=== PATIENT | female | born 1975 | race African-American/Black ===

== ENCOUNTER 2016-07-07 23:12 | Emergency (ER) | payer MEDICAID ==
[~2016-07-07] VITALS: Ht 172.7 cm; Wt 99.0 kg
[2016-07-07 23:12] VITALS: BP 128/62; PULSE 67; RESP 16; TEMP 98.1; O2SAT 99
[2016-07-08 01:45] LABS: AUTOMATED NEUTROPHIL # 6.1 TH/MM3 (1.8-7.7); BASOPHIL # 0.1 TH/MM3 (0-0.2); EOSINOPHIL # 0.1 TH/MM3 (0-0.4); EOSINOPHIL % 0.7 % (0.0-4.0); HEMATOCRIT 30.6 % (35.0-46.0); HEMO FLAGS DIFF FINAL; LYMPH % 21.8 % (9.0-44.0); LYMPHOCYTE # 1.9 TH/MM3 (1.0-4.8); MEAN CELL VOLUME 78.5 FL (80.0-100.0); MEAN CORPUSCULAR HEMOGLOBIN 25.6 PG (27.0-34.0); MEAN CORPUSCULAR HGB CONC 32.6 % (32.0-36.0); NEUT % 70.5 % (16.0-70.0); PLATELET COUNT 360 TH/MM3 (150-450); RED CELL DISTRIBUTION WIDTH 17.2 % (11.6-17.2); WHITE BLOOD COUNT 8.7 TH/MM3 (4.0-11.0)
[2016-07-08 01:57] VITALS: BP 108/57; PULSE 60; RESP 15; O2SAT 98
--- NOTE | 2016-07-08 02:02 | RADRPT ---
EXAM DATE/TIME: 07/08/2016 01:45 [facility] COMPARISON: No previous studies available for comparison. INDICATIONS : Cephalgia x1 week. Vomiting today. RADIATION DOSE: 39.92 CTDIvol (mGy) MEDICAL HISTORY : None SURGICAL HISTORY : None. ENCOUNTER: Initial ACUITY: 1 week PAIN SCALE: 4/10 LOCATION: cranial TECHNIQUE: Multiple contiguous axial images were obtained of the head. Using automated exposure control and adj ustment of the mA and/or kV according to patient size, radiation dose was kept as low as reasonably a chievable to obtain optimal diagnostic quality images. FINDINGS: CEREBRUM: The ventricles are normal for age. No evidence of midline shift, mass lesion, hemorrhage or acute in farction. No extra-axial fluid collections are seen. POSTERIOR FOSSA: The cerebellum and brainstem are intact. The 4th ventricle is midline. The cerebellopontine angle i s unremarkable. EXTRACRANIAL: The visualized portion of the orbits is intact. SKULL: The calvaria is intact. No evidence of skull fracture. CONCLUSION: Normal examination. Eligio Marion Jr., MD on July 08, 2016 at 2:00 Board Certified Radiologist. This report was verified electronically.
[2016-07-08 02:15] LABS: ALT (GPT) 19 U/L (10-53); ANION GAP 7 MEQ/L (5-15); AST (GOT) 16 U/L (15-37); BICARBONATE 25.9 MEQ/L (21.0-32.0); BLOOD UREA NITROGEN 10 MG/DL (7-18); CHLORIDE 111 MEQ/L (98-107); GLOMERULAR FILTRATION RATE 94 ML/MIN (>89); POTASSIUM 3.6 MEQ/L (3.5-5.1); SODIUM (NA) 144 MEQ/L (136-145)
[2016-07-08] MEDS ORDERED: SODIUM CHLOR 0.9% 1000 ML INJ 1,000 ML IV ONE (02:15)
[2016-07-08] MEDS ORDERED: PROCHLORPERAZINE INJ 10 MG/2 ML VIAL IV PUSH ONE (02:15)
[2016-07-08] MEDS ORDERED: diphenhydrAMINE HCL 50 MG/ML VIAL IV PUSH ONE (02:15)
[2016-07-08] MEDS ORDERED: KETOROLAC TROMETHAMINE 30 MG/ML (IVP) VIAL IV PUSH ONE (02:15)
[2016-07-08 02:17] LABS: ALKALINE PHOSPHATASE 66 U/L (45-117); TOTAL BILIRUBIN ADULT 0.3 MG/DL (0.2-1.0)
--- NOTE | 2016-07-08 02:33 | PD ---
HPI Chief Complaint: Headache Time Seen by Provider: 01:21 Travel History International Travel<30 days: No Contact w/Intl Traveler<30days: No Traveled to known affect area: No History of Present Illness HPI The patient is a 40 year old female who presents to the [facility] emergency department with a history of headache that she reports began over a week ago. The patient reports that the headache is in her neck and radiates up into the top of her head. She reports that she's had headaches like this previously, however this has lasted longer than usual. She reports that today she began to have nausea and vomiting associated with it. She reports that she' s had sensitivity to light and sound. She reports that she has been diagnosed with migraine headaches in the past. Her primary care physician started her on a medicine 6 months ago to help, however she reports that it did not. She reports that she cannot recall the name of the medicine. She's had 3 episodes of vomiting today. She had 1 episode of diarrhea. She denies having any nasal discharge or sinus pressure. She reports that she does have a mild cough. She denies having any fevers or chills. Her primary care physician is in [place], [place]. She reports that she has been under increased stress recently. The patient denies any neck stiffness, shortness of breath, abdominal pain, urinary symptoms, or neurologic symptoms. LMP: June 26, 2016 [facility] Past Medical History Narrative Medical The patient's past medical history is significant for headaches, tobacco use. Headaches: Yes Tetanus Vaccination: < 5 Years Influenza Vaccination: No ?: Not : 9 Para: 7 Miscarriage: 2 Tubal Ligation: Yes Past Surgical History Narrative Surgical The patient's past surgical history is significant for LEEP procedure related to cervical dysplasia. Social History Alcohol Use: No Tobacco Use: Yes (one half pack per day) Substance Use: No Allergies-Medications (Allergen,Severity, Reaction): Coded Allergies: No Known Allergies (Unverified , 07/08/16) Reported Meds & Prescriptions Reported Meds & Active Scripts Active No Active Prescriptions or Reported Medications Review of Systems Except as stated in HPI: all other systems reviewed are Neg General / Constitutional: No: Fever Eyes: No: Visual changes HENT: Positive: Headaches, Neck Pain, No: Rhinorrhea, Congestion, Neck Stiffness Cardiovascular: No: Chest Pain or Discomfort, Dyspnea on exertion Respiratory: Positive: Cough, No: Shortness of Breath Gastrointestinal: Positive: Nausea, Vomiting, Diarrhea, Changes in Bowel Habits , No: Abdominal Pain, Hematemesis, Hematochezia, Constipation, Indigestion, Loss of Appetite Genitourinary: No: Dysuria Musculoskeletal: No: Pain Skin: No Rash Neurologic: No: Weakness, Focal Abnormalities, Change in Mentation, Slurred Speech, Sensory Disturbance Psychiatric: No: Depression Endocrine: No: Polydipsia Hematologic/Lymphatic: No: Easy Bruising Physical Exam Narrative General: The patient is a well-developed well-nourished female in no acute distress. Head and Neck exam: Head is normocephalic atraumatic. Eyes: EOMI, pupils are equal round and reactive to light. Nose: Midline septum with pink mucous membranes and no sinus tenderness on palpation. Mouth: Dentition unremarkable. Moist mucus membranes. Posterior oropharynx is not erythematous. No tonsillar hypertrophy. Uvula midline. Airway patent. Neck: No palpable lymphadenopathy. No nuchal rigidity. No thyromegaly. No spinous process tenderness to palpation, no step-off or crepitus, no erythema or ecchymosis. Cardiovascular: Regular rate and rhythm without murmurs, gallops, or rubs. Lungs: Clear to auscultation bilaterally. No wheezes, rhonchi, or rales. Abdomen: Soft, without tenderness to palpation in all 4 quadrants of the abdomen. No guarding, rebound, or rigidity. Normal bowel sounds are audible. Extremities: No clubbing, cyanosis, or edema. Back: No spinous process tenderness to palpation. No costovertebral angle tenderness to palpation. No calf tenderness on palpation. Neurologic Exam: Cranial nerves 2-12 were intact on exam. Strength is 5/5 in all 4 extremities. No sensory deficits noted. Skin Exam: No rash noted. Intact skin that is warm and dry. Data Data Last Documented VS Vital Signs Date Time Temp Pulse Resp B/P Pulse Ox O2 Delivery O2 Flow Rate FiO2 07/08/16 01:57 60 15 108/57 98 Room Air 07/07/16 23:12 98.1 Orders Complete Blood Count With Diff (07/08/16 01:21) Comprehensive Metabolic Panel (07/08/16 01:21) Lipase (07/08/16 01:21) Urinalysis - C+S If Indicated (07/08/16 01:21) Chest, Single Ap (07/08/16 01:21) Ct Brain W/O Iv Contrast(Rout) (07/08/16 01:21) Iv Access Insert/Monitor (07/08/16 01:21) Ecg Monitoring (07/08/16 01:21) Oximetry (07/08/16 01:21) Ed Urine Pregnancytest Poc (07/08/16 01:21) Sodium Chlor 0.9% 1000 Ml Inj (Ns 1000 M (07/08/16 02:15) Ketorolac Inj (Toradol Inj) (07/08/16 02:15) Prochlorperazine Inj (Compazine Inj) (07/08/16 02:15) Diphenhydramine Inj (Benadryl Inj) (07/08/16 02:15) Labs Laboratory Tests Test 07/08/16 07/08/16 01:38 02:00 White Blood Count 8.7 TH/MM3 Red Blood Count 3.90 MIL/MM3 Hemoglobin 10.0 GM/DL Hematocrit 30.6 % Mean Corpuscular Volume 78.5 FL Mean Corpuscular Hemoglobin 25.6 PG Mean Corpuscular Hemoglobin 32.6 % Concent Red Cell Distribution Width 17.2 % Platelet Count 360 TH/MM3 Mean Platelet Volume 7.8 FL Neutrophils (%) (Auto) 70.5 % Lymphocytes (%) (Auto) 21.8 % Monocytes (%) (Auto) 6.0 % Eosinophils (%) (Auto) 0.7 % Basophils (%) (Auto) 1.0 % Neutrophils # (Auto) 6.1 TH/MM3 Lymphocytes # (Auto) 1.9 TH/MM3 Monocytes # (Auto) 0.5 TH/MM3 Eosinophils # (Auto) 0.1 TH/MM3 Basophils # (Auto) 0.1 TH/MM3 CBC Comment DIFF FINAL Differential Comment Sodium Level 144 MEQ/L Potassium Level 3.6 MEQ/L Chloride Level 111 MEQ/L Carbon Dioxide Level 25.9 MEQ/L Anion Gap 7 MEQ/L Blood Urea Nitrogen 10 MG/DL Creatinine 0.70 MG/DL Estimat Glomerular Filtration 94 ML/MIN Rate Random Glucose 92 MG/DL Calcium Level 9.1 MG/DL Total Bilirubin 0.3 MG/DL Aspartate Amino Transf 16 U/L (AST/SGOT) Alanine Aminotransferase 19 U/L (ALT/SGPT) Alkaline Phosphatase 66 U/L Total Protein 7.1 GM/DL Albumin 3.3 GM/DL Lipase 94 U/L Urine Color YELLOW Urine Turbidity HAZY Urine pH 7.5 Urine Specific [place] 1.017 Urine Protein TRACE mg/dL Urine Glucose (UA) NEG mg/dL Urine Ketones NEG mg/dL Urine Occult Blood NEG Urine Nitrite NEG Urine Bilirubin NEG Urine Urobilinogen LESS THAN 2.0 MG/DL Urine Leukocyte Esterase SMALL Urine RBC 2 /hpf Urine WBC 5 /hpf Urine Squamous Epithelial 4 /hpf Cells Urine Renal Epithelial Cells <1 /hpf Urine Amorphous Sediment RARE Urine Bacteria OCC /hpf Urine Mucus FEW /lpf Microscopic Urinalysis Comment CULT NOT INDICATED MDM Medical Decision Making Medical Screen Exam Complete: Yes Emergency Medical Condition: Yes Interpretation(s) Last Impressions Head CT 07/08/16120 Signed Impressions: Service Date/Time: Friday, July 08, 2016 01:45 - CONCLUSION: Normal examination. Eligio Marion Jr., MD Chest X-Ray 07/08/16120 Signed Impressions: Service Date/Time: Friday, July 08, 2016 01:29 - CONCLUSION: No acute disease. Eligio Marion Jr., MD Differential Diagnosis Migraine headache, versus tension headache, versus intracranial abnormality, versus viral syndrome versus sinus headache, versus cluster headache Narrative Course During the course of the patients emergency department visit, the patients history, examination, and differential diagnosis were reviewed with the patient. The patient had IV access obtained and blood work sent for analysis. The patient was placed on a monitoring specialist with oximetry and blood pressure monitoring. A CT scan of the brain was ordered. The patient was provided normal saline 1 L IV fluid bolus, Toradol 15 mg IV, Compazine 5 mg IV, Benadryl 25 mg IV. The patients laboratory studies were reviewed and remarkable for a white count of 8.7, hemoglobin 10, platelets 360 with 70.5 neutrophils Radiology studies were reviewed and remarkable for a CT scan of the brain that shows no acute abnormality. The patient reportedly was feeling improved and her significant other had to go to work, unfortunately the patient's workup was not completed. The patient decided to leave AGAINST MEDICAL ADVICE prior to the completion of her workup AMA: The risks of leaving against medical advice without further evaluation treatment were discussed with the patient. These risks include possible stroke or . The patient indicated understanding of these risks and appeared to have the capacity to make this decision. Diagnosis Primary Impression: Headache Qualified Code: G44.209 - Acute non intractable tension-type headache Scripts No Active Prescriptions or Reported Meds Disposition: 07 AGAINST MEDICAL ADVICE Condition: Bobbi Peraza MD Jul 08, 2016 02:33
--- NOTE | 2016-07-08 02:34 | RADRPT ---
EXAM DATE/TIME: 07/08/2016 01:29 [facility] COMPARISON: No previous studies available for comparison. INDICATIONS : Nausea and vomiting, headache. MEDICAL HISTORY : None. SURGICAL HISTORY : None. ENCOUNTER: Initial ACUITY: 1 day PAIN SCORE: 0/10 LOCATION: Bilateral chest FINDINGS: A single view of the chest demonstrates the lungs to be symmetrically aerated without evidence of mas s, infiltrate or effusion. The cardiomediastinal contours are unremarkable. Osseous structures are intact. CONCLUSION: No acute disease. Eligio Marion Jr., MD on July 08, 2016 at 2:33 Board Certified Radiologist. This report was verified electronically.
[2016-07-08 03:15] LABS: BACTERIA, URINE OCC /hpf; BLOOD, URINE NEG (NEG); COMMENT (UR) CULT NOT INDICATED; CULTURE IF INDICATED CULT NOT INDICATED; GLUCOSE,URINE NEG (NEG); KETONE, URINE NEG (NEG); MUCUS URINE FEW /lpf (OCC); NITRITE,URINE NEG (NEG); PH, URINE 7.5 (5.0-8.5); RENAL EPITHELIAL CELLS <1 /hpf; SQUAMOUS EPITHELIAL CELL URINE 4 /hpf (0-5); URINE COLOR YELLOW (YELLW/STRAW)
== END 2016-07-08 04:34 | disposition left against medical advice (07) ==
LOC: NEPC 23:12
DX: Z72.0 Tobacco use (principal); R51 Headache; R11.2 Nausea with vomiting, unspecified; R19.7 Diarrhea, unspecified
CPT/HCPCS: 70450; 71010; 80053; 81001; 83690; 84703; 85025; 96374; 96375; 99284; J0780; J1200; J1885; J7030

== ENCOUNTER 2016-09-18 21:42 | Emergency (ER) | payer MEDICAID, OTHER ==
[2016-09-18 21:44] VITALS: BP 135/78; PULSE 86; RESP 20; TEMP 98.6; O2SAT 100
[2016-09-18] MEDS ORDERED: ONDANSETRON ODT 4 MG TAB PO ONE (22:45)
[2016-09-18] MEDS ORDERED: KETOROLAC TROMETHAMINE 60 MG/2 ML (IM) VIAL IM ONE (22:45)
--- NOTE | 2016-09-18 22:55 | PD ---
HPI Chief Complaint: Back/ Neck Pain or Injury Time Seen by Provider: 22:36 Travel History International Travel<30 days: No Contact w/Intl Traveler<30days: No Traveled to known affect area: No History of Present Illness HPI PT C/O LEFT FLANK PAIN, RAD TO LEFT GROIN AREA AND DOWN LEFT LEG WELL PFSH Past Medical History Headaches: Yes Immunizations Current: Yes Tetanus Vaccination: > 5 Years Influenza Vaccination: No ?: Unknown LMP: LAST MONTH : 9 Para: 7 Miscarriage: 2 : 0 Tubal Ligation: Yes Past Surgical History Genitourinary Surgery: Yes (LEEP 2004) Social History Alcohol Use: No Tobacco Use: Yes (one half pack per day) Substance Use: No Allergies-Medications (Allergen,Severity, Reaction): Coded Allergies: No Known Allergies (Unverified , 09/18/16) Reported Meds & Prescriptions Reported Meds & Active Scripts Active No Active Prescriptions or Reported Medications Review of Systems Except as stated in HPI: all other systems reviewed are Neg Genitourinary: Positive: Flank Pain Physical Exam Narrative GENERAL: SKIN: Warm and dry. HEAD: Atraumatic. Normocephalic. EYES: Pupils equal and round. No scleral icterus. No injection or drainage. ENT: No nasal bleeding or discharge. Mucous membranes pink and moist. NECK: Trachea midline. No JVD. CARDIOVASCULAR: Regular rate and rhythm. RESPIRATORY: No accessory muscle use. Clear to auscultation. Breath sounds equal bilaterally. GASTROINTESTINAL: Abdomen soft, non-tender, nondistended. Hepatic and splenic margins not palpable. MUSCULOSKELETAL: Extremities without clubbing, cyanosis, or edema. No obvious deformities. PATIENT DID HAVE POSITIVE SLR ON EXAM. NO MIDLINE TTP ON LUMBAR/ SACRAL REGION NEUROLOGICAL: Awake and alert. No obvious cranial nerve deficits. Motor grossly within normal limits. Five out of 5 muscle strength in the arms and legs. Normal speech. PSYCHIATRIC: Appropriate mood and affect; insight and judgment normal. Data Data Last Documented VS Vital Signs Date Time Temp Pulse Resp B/P Pulse Ox O2 Delivery O2 Flow Rate FiO2 09/18/16 21:44 98.6 86 20 135/78 100 Room Air Orders Urinalysis - C+S If Indicated (09/18/16 22:39) Ct Abd/Pel W/O Iv Contrast (09/18/16 22:39) Ed Urine Pregnancytest Poc (09/18/16 22:39) Ketorolac Inj (Toradol Inj) (09/18/16 22:45) Ondansetron Odt (Zofran Odt) (09/18/16 22:45) Urine Culture (09/18/16 22:45) Labs Laboratory Tests Test 09/18/16 22:45 Urine Color YELLOW Urine Turbidity HAZY Urine pH 8.0 Urine Specific [place] 1.022 Urine Protein 30 mg/dL Urine Glucose (UA) NEG mg/dL Urine Ketones NEG mg/dL Urine Occult Blood NEG Urine Nitrite POS Urine Bilirubin NEG Urine Urobilinogen LESS THAN 2.0 MG/DL Urine Leukocyte Esterase NEG Urine RBC LESS THAN 1 /hpf Urine WBC 6 /hpf Urine Squamous Epithelial 5 /hpf Cells Urine Bacteria MOD /hpf Urine Mucus FEW /lpf Microscopic Urinalysis Comment CULTURE INDICATED MDM Medical Decision Making Medical Screen Exam Complete: Yes Emergency Medical Condition: Yes Medical Record Reviewed: Yes Differential Diagnosis UTI, PYELO, SCIATICA, KIDNEY STONES Narrative Course UA SHOWED SIGNS OF UTI, WHILE CT WAS NEG FOR DIVERTIC/PYELO/KIDNEY STONES OR AAA /AORTIC DISSECTION...IT DID SHOW OVARIAN CYST WILL D/C HOME ON ABX AND PAIN MED Diagnosis Primary Impression: Urinary tract infection Qualified Code: N30.00 - Acute cystitis without hematuria Additional Impression: OVARIAN CYST-LEFT Patient Instructions: General Instructions, Ovarian Cyst (ED), Urinary Tract Infection in Women (ED) Scripts Tramadol (Ultram)50 Mg Tab50 Mg PO Q6H PRN (PAIN) #21 TAB Ref 0 Prov:Mariano Solano MD 09/19/16 Ciprofloxacin (Cipro)500 Mg Dpe720 Mg PO BID #14 TAB Ref 0 Prov:Mariano Solano MD 09/19/16 Disposition: 01 DISCHARGE HOME Condition: Stable Mariano Solano MD Sep 18, 2016 22:55
[2016-09-18 23:03] LABS: BACTERIA, URINE MOD /hpf; BLOOD, URINE NEG (NEG); COMMENT (UR) CULTURE INDICATED; CULTURE IF INDICATED CULTURE INDICATED; GLUCOSE,URINE NEG (NEG); KETONE, URINE NEG (NEG); MUCUS URINE FEW /lpf (OCC); NITRITE,URINE POS (NEG); SQUAMOUS EPITHELIAL CELL URINE 5 /hpf (0-5); URINE COLOR YELLOW (YELLW/STRAW)
--- NOTE | 2016-09-18 23:47 | RADRPT ---
EXAM DATE/TIME: 09/18/2016 23:27 [facility] COMPARISON: No previous studies available for comparison. INDICATIONS : Left flank pain. ORAL CONTRAST: No oral contrast ingested. RADIATION DOSE: 16.78 CTDIvol (mGy) MEDICAL HISTORY : None SURGICAL HISTORY : Tubal ligation. ENCOUNTER: Initial ACUITY: 1 day PAIN SCALE: 10/10 LOCATION: Left flank TECHNIQUE: Volumetric scanning of the abdomen and pelvis was performed. Using automated exposure control and ad justment of the mA and/or kV according to patient size, radiation dose was kept as low as reasonably achievable to obtain optimal diagnostic quality images. FINDINGS: CT Abdomen: The liver, spleen, pancreas, kidneys, adrenals are unremarkable. There is no evidence for any appreciable pathological adenopathy, free fluid, or bowel obstruction. There is no evidence for any stones in the kidneys or the course of the ureters on either side. There is no hydronephrosis. CT pelvis: There is no evidence for mass, abscess formation, or any significant adenopathy within the pelvis. There are gas bubbles in the patient's left buttock most likely injection site. There is mod erate amount of stool throughout the colon. There is a small cyst in the left ovary measuring 1.8 cm in size. CONCLUSION: Small left ovarian cyst and moderate stool. Neema Ibarra MD on September 18, 2016 at 23:42 Board Certified Radiologist. This report was verified electronically.
[2016-09-19] MEDS ORDERED: CIPR-9 PO (00:04)
[2016-09-19] MEDS ORDERED: ULTR50TA5 PO (00:04)
== END 2016-09-19 01:17 | disposition home or self-care (01) ==
LOC: NEPD 21:42
DX: N83.202 Unspecified ovarian cyst, left side (principal); F17.200 Nicotine dependence, unspecified, uncomplicated; B96.20 Unspecified Escherichia coli [E. coli] as the cause of diseases classified elsewhere
CPT/HCPCS: 74176; 81001; 84703; 87086; 96372; 99285; J1885

== ENCOUNTER 2017-12-27 18:11 | Observation (INO) ==
[2017-12-27] MEDS ORDERED: Acetaminophen 500 MG Tablet PO ONE (19:09)
[2017-12-27] MEDS ORDERED: Vancomycin Inj 1 GM/200 ML PIGGYBACK IV.SIG ONE (19:09)
[2017-12-27] MEDS ORDERED: Ibuprofen 600 MG Tablet PO ONE (19:09)
[2017-12-27] MEDS ORDERED: Morphine Inj 4 MG/ML Vial IV.PUSH ONE (19:16)
--- NOTE | 2017-12-27 19:19 | ED ---
HPI General Chief Complaint: Headache Stated Complaint: migrain/chills/cant eat Time Seen by Provider: 12/27/17 19:03 History of Present Illness HPI Narrative: The patient was seen and examined in the presence of the nurse. This patient complains of headache. She has a bilateral frontal throbbing. Duration 10 days. Severity is moderate. No thunderclap onset. She says she gets migraines rarely does feel similar. She also has fever of 102.2. She has some nasal and facial congestion. She denies productive cough she has nausea but no vomiting or diarrhea or urinary complaints. No neck pain or stiffness. No alleviating factors. No exacerbating factors. Related Data Home Medications Medication Instructions Recorded Confirmed No Known Home Medications 12/27/17 12/27/17 Allergies Allergy/AdvReac Type Severity Reaction Status Date / Time No Known Allergies Allergy UNKNOWN Uncoded 12/27/17 18:47 [facility] Medical History Medical History Patient denies medical problems (Acute) Surgical History Surgical History No history of previous surgery (Acute) Social History Social History Substance History: No History of Abuse Smoking Status: Former smoker How Often Do You Have a Drink Containing Alcohol: Never Recent Travel in [facility] within the Last 8 Weeks: No Recent Out of Country Travel within the Last 8 Weeks: No Immunization History Tetanus Immunization: <5 Years Exam Narrative Exam Narrative: GENERAL: Well-nourished, well-developed patient in no apparent distress. SKIN: Focused skin assessment reveals no rash and nodules. Skin is Warm and dry. HEAD: Atraumatic. Normocephalic. EYES: Pupils equal and round. No scleral icterus. No injection or drainage. ENT: No nasal bleeding or discharge. Mucous membranes pink and moist. NECK: Trachea midline. No JVD. Supple with full range of motion. No stiffness. No meningeal signs. Kernig's and Brudzinski's negative CARDIOVASCULAR: Regular rate and rhythm. No murmur appreciated. RESPIRATORY: No accessory muscle use. Clear to auscultation. Breath sounds equal bilaterally. GASTROINTESTINAL: Abdomen soft, non-tender, nondistended. Hepatic and splenic margins not palpable. MUSCULOSKELETAL: No obvious deformities. No clubbing. No cyanosis. No edema. NEUROLOGICAL: Awake and alert. No obvious cranial nerve deficits. Motor grossly within normal limits. Normal speech. PSYCHIATRIC: Appropriate mood and affect; insight and judgment normal. Course Initial Documented Vital Signs Temperature 102.2 F H 12/27/17 18:35 Pulse Rate 81 12/27/17 18:35 Respiratory Rate 16 12/27/17 18:35 Blood Pressure 124/67 12/27/17 18:35 Pulse Oximetry 99 12/27/17 18:35 Last Documented Vital Signs Temperature 99.9 F H 12/27/17 20:37 Pulse Rate 81 12/27/17 18:35 Respiratory Rate 16 12/27/17 18:35 Blood Pressure 124/67 12/27/17 18:35 Pulse Oximetry 99 12/27/17 18:35 Medical Decision Making MDM Narrative Medical decision making narrative: IV placed and labs sent. I order blood cultures followed by antibiotics of vancomycin and Rocephin. Gave her Tylenol and Motrin and Zofran. Patient has hypokalemia which I replaced orally. Has no leukocytosis. Chest x- ray and brain CT normal and urine clean. Loose swab negative. I have concern for meningitis with her fever and headache. I attempted lumbar puncture with multiple times but I cannot get any fluid. See procedure note. There was tolerated well but just no fluid could be obtained. I reviewed medical residents will admit for evaluation of meningitis. Medical Screen Exam Complete: Yes Emergency Medical Condition: Yes Differential Diagnosis Differential Diagnosis: Flu syndrome, meningitis, pneumonia Medical Records Medical records reviewed: Yes I reviewed the patient's medical records. Lab Data Lab results reviewed: Yes I reviewed the patient's lab results. Result diagrams: 12/27/17 19:45 12/27/17 19:45 Lab Results 12/27/17 12/27/17 12/27/17 Range/Units 19:45 19:45 19:45 WBC 4.5 (4.0-11.0) th/mm3 RBC 3.87 L (4.00-5.30) mil/mm3 Hgb 9.9 L (11.6-15.3) gm/dL Hct 31.1 L (35.0-46.0) % MCV 80.3 (80.0-100.0) fL MCH 25.6 L (27.0-34.0) pg MCHC 31.9 L (32.0-36.0) % RDW 16.3 (11.6-17.2) % Plt Count 316 (150-450) th/mm3 MPV 8.0 (7.0-11.0) fL Neut % (Auto) 49.6 (16.0-70.0) % Lymph % (Auto) 38.7 (9.0-44.0) % [place] % (Auto) 11.2 H (0.0-8.0) % Eos % (Auto) 0.1 (0.0-4.0) % Baso % (Auto) 0.4 (0.0-2.0) % Neut # (Auto) 2.2 (1.8-7.7) th/mm3 Lymph # (Auto) 1.7 (1.0-4.8) th/mm3 [place] # (Auto) 0.5 (0.0-0.9) th/mm3 Eos # (Auto) 0.0 (0.0-0.4) th/mm3 Baso # (Auto) 0.0 (0.0-0.2) th/mm3 WBC Differential . Differential Comment Auto diff final PT 10.9 (9.8-11.6) sec INR 1.1 Ratio APTT 24.9 (24.3-30.1) sec Sodium 139 (136-145) meq/L Potassium 2.8 L* (3.5-5.1) meq/L Chloride 106 (98-107) meq/L Carbon Dioxide 26.3 (21.0-32.0) meq/L Anion Gap 7 (5-15) meq/L BUN 8 (7-18) mg/dL Creatinine 0.86 (0.50-1.00) mg/dL Estimated GFR 88 L (>89) mL/min Random Glucose 84 (74-106) mg/dL Calcium 8.4 L (8.5-10.1) mg/dL Urine Color (Yellw/Straw) Urine Clarity (Clear) Urine pH (5.0-8.5) Ur Specific [place] (1.002-1.035) Urine Protein (Neg-Trace) mg/dL Urine Glucose (UA) (Negative) mg/dL Urine Ketones (Negative) mg/dL Urine Occult Blood (Negative) Urine Nitrate (Negative) Urine Bilirubin (Negative) Urine Urobilinogen (Less than 2) mg/dL Ur Leukocyte Esterase (Negative) Urine RBC (0-3) /hpf Urine WBC (0-5) /hpf Ur Squamous Epith Cells (0-5) /hpf Urine Mucus (Occasional) /lpf Micro UA Comment Ur Microscopic Review Urine Culture Comments 12/27/17 Range/Units 19:45 WBC (4.0-11.0) th/mm3 RBC (4.00-5.30) mil/mm3 Hgb (11.6-15.3) gm/dL Hct (35.0-46.0) % MCV (80.0-100.0) fL MCH (27.0-34.0) pg MCHC (32.0-36.0) % RDW (11.6-17.2) % Plt Count (150-450) th/mm3 MPV (7.0-11.0) fL Neut % (Auto) (16.0-70.0) % Lymph % (Auto) (9.0-44.0) % [place] % (Auto) (0.0-8.0) % Eos % (Auto) (0.0-4.0) % Baso % (Auto) (0.0-2.0) % Neut # (Auto) (1.8-7.7) th/mm3 Lymph # (Auto) (1.0-4.8) th/mm3 [place] # (Auto) (0.0-0.9) th/mm3 Eos # (Auto) (0.0-0.4) th/mm3 Baso # (Auto) (0.0-0.2) th/mm3 WBC Differential Differential Comment PT (9.8-11.6) sec INR Ratio APTT (24.3-30.1) sec Sodium (136-145) meq/L Potassium (3.5-5.1) meq/L Chloride (98-107) meq/L Carbon Dioxide (21.0-32.0) meq/L Anion Gap (5-15) meq/L BUN (7-18) mg/dL Creatinine (0.50-1.00) mg/dL Estimated GFR (>89) mL/min Random Glucose (74-106) mg/dL Calcium (8.5-10.1) mg/dL Urine Color Yellow (Yellw/Straw) Urine Clarity Hazy H (Clear) Urine pH 6.0 (5.0-8.5) Ur Specific [place] 1.015 (1.002-1.035) Urine Protein Negative (Neg-Trace) mg/dL Urine Glucose (UA) Negative (Negative) mg/dL Urine Ketones Negative (Negative) mg/dL Urine Occult Blood Small H (Negative) Urine Nitrate Negative (Negative) Urine Bilirubin Negative (Negative) Urine Urobilinogen Less than 2 (Less than 2) mg/dL Ur Leukocyte Esterase Negative (Negative) Urine RBC 4 H (0-3) /hpf Urine WBC Less than 1 (0-5) /hpf Ur Squamous Epith Cells 1 (0-5) /hpf Urine Mucus Few H (Occasional) /lpf Micro UA Comment Culture not ind Ur Microscopic Review Not Reportable Urine Culture Comments Culture not ind Imaging Data Attestation: I personally reviewed and interpreted this imaging study as follows : Radiologist's impression: Chest X-Ray 12/27/17 19:09 CONCLUSION: No acute cardiopulmonary disease. Head CT 12/27/17 19:13 CONCLUSION: Unremarkable study. Discharge Plan Discharge Disposition Patient Disposition: 30 Still Patient Discharge Details Diagnosis: Fever, Headache Physicians Team ED Provider: Diaz Alfaro Primary Care Provider: Primary Care RobiEdel Rxs /Orders / Referrals /Forms Prescriptions: No Action No Known Home Medications RF: 0 Discharge Interventions Interventions: Vital Signs Last Done: 12/27/17 20:37 Status ED Status: With Doctor
[2017-12-27] MEDS ORDERED: Vancomycin Inj 1,000 MG in Sodium Chlor 0.9% Inj 250 ML IV.SIG ONE (19:30)
--- NOTE | 2017-12-27 19:40 | XR ---
EXAM DATE: 12/27/2017 7:36 PM EDT AGE/SEX: 42 years / Female INDICATIONS: . Short of breath. Fever. CLINICAL DATA: This is the patient's initial encounter. Patient reports that signs and symptoms have been present for 3 days and indicates a pain score of 5/10. MEDICAL/SURGICAL HISTORY: None. None. COMPARISON: [facility] – [place], CHEST SINGLE AP, 07/08/2016. . FINDINGS: The lungs are clear without infiltrate, nodule, or mass. There is no appreciable pleural effusion for technique. Heart and mediastinum are unremarkable. CONCLUSION: No acute cardiopulmonary disease. Electronically signed by: Aj Ibarra MD 12/27/2017 7:39 PM EDT
[2017-12-27 20:07] LABS: Baso % (Auto) 0.4 % (0.0-2.0); Eos % (Auto) 0.1 % (0.0-4.0); Hematocrit 31.1 % (35.0-46.0); Hemoglobin 9.9 gm/dL (11.6-15.3); Lymph # (Auto) 1.7 th/mm3 (1.0-4.8); Lymph % (Auto) 38.7 % (9.0-44.0); Mean Corpuscular HGB Conc 31.9 % (32.0-36.0); Mean Corpuscular Hemoglobin 25.6 pg (27.0-34.0); Mean Corpuscular Volume 80.3 fL (80.0-100.0); Mono # (Auto) 0.5 th/mm3 (0.0-0.9); Mono % (Auto) 11.2 % (0.0-8.0); Neut # (Auto) 2.2 th/mm3 (1.8-7.7); Neut % (Auto) 49.6 % (16.0-70.0); Platelet Count 316 th/mm3 (150-450); Red Blood Count 3.87 mil/mm3 (4.00-5.30); Red Cell Distribution Width 16.3 % (11.6-17.2); White Blood Count 4.5 th/mm3 (4.0-11.0)
[2017-12-27 20:12] LABS: Bilirubin,Urine Negative (Negative); Clarity,Urine Hazy (Clear); Color,Urine Yellow (Yellw/Straw); Glucose,Urine (UA) Negative (Negative); Leukocyte Esterase,Urine Negative (Negative); Mucus,Urine Few /lpf (Occasional); Nitrite,Urine Negative (Negative); Specific Gravity,Urine 1.015 (1.002-1.035); Squamous Epithelial Cell,Urine 1 /hpf (0-5)
[2017-12-27 20:29] LABS: Activated Partial Thrombo Time 24.9 sec (24.3-30.1); INR 1.1 Ratio; Prothrombin Time 10.9 sec (9.8-11.6)
--- NOTE | 2017-12-27 20:32 | CT ---
EXAM DATE: 12/27/2017 8:21 PM EDT AGE/SEX: 42 years / Female INDICATIONS: Headache. CLINICAL DATA: This is the patient's initial encounter. Patient reports that signs and symptoms have been present for 1 week and indicates a pain score of 7/10. MEDICAL/SURGICAL HISTORY: None. None. RADIATION DOSE: 33.62 CTDI (mGy) COMPARISON: . TECHNIQUE: CT of the head without contrast. Using automated exposure control and adjustment of the mA and/or kV according to patient size, radiation dose was kept as low as reasonably achievable to ob tain optimal diagnostic quality images. DICOM format image data is available electronically for revi ew and comparison. FINDINGS: There is no evidence for intracranial hemorrhage, mass effect, mass lesions, edema, or extra-axial fl uid collections. The visualized bony structures appear intact. The ventricles are normal size for t he patient's age. There are no signs of acute infarction for technique. CONCLUSION: Unremarkable study. Electronically signed by: Aj Ibarra MD 12/27/2017 8:29 PM EDT
[2017-12-27 20:37] LABS: Calcium 8.4 mg/dL (8.5-10.1); Carbon Dioxide 26.3 meq/L (21.0-32.0)
[2017-12-27 21:26] LABS: Potassium 2.8 meq/L (3.5-5.1)
[2017-12-27] MEDS ORDERED: Potassium Chloride 25 MEQ Effervescent Tablet PO ONE (22:14)
--- NOTE | 2017-12-27 22:34 | P.HPFP ---
History of Present Illness Primary Care Physician: No Primary Care Physician <DangeloGregorio Nilesh 12/28/17 15:12> No Primary Care Physician <Keri RUBYBjorn Macario 12/27/17 22:33> Chief Complaint: RAMIREZ and fever <Keri RUBYBjorn Macario 12/27/17 22:33> History of Present Illness: Ms Zepeda is a healthy 42 YO with PMHx of migraines, varicose veins and restless leg syndrome who has had a RAMIREZ for a week and a half and fever today. She has had intermittent migraines in the past but those resolved. RAMIREZ today described as throbbing at the temples and starts on one side and switches from side to side and goes to her neck. There has been dizziness, sensation like the room is spinning with pressure; there has been nausea but no vomiting, no diarrhea or abdominal pain, no dysuria; however, there is tingling and radiation in the right arm; there is whole body pain associated with the RAMIREZ. There is no Hx of trauma; no sick contacts. Pt notes she visited the ED several months ago for back pain and a cyst on her left ovary was causing pain. SurgHx: tubal ligation and LEEP FamHx: No Hx in mom or dad; father was killed; brother with HTN; mother is still alive SocHx: smoked for a couple years. Started when she was 38; no EtOH or other drugs Takes no meds currently NKA Pt had a PCP in [place] 2-3 years ago but does not have one now. <Keri RUBYBjorn Macario 12/27/17 23:58> - Diagnosis (1) Fever (2) Headache (3) Hypokalemia <Keri RUBYBjorn Macario 12/28/17 00:34> (1) Headache (2) Fever (3) Hypokalemia <Gregorio Pierson Nilesh 12/28/17 15:12> Review of Systems Constitutional: Reports fever(s), Reports weakness, Denies night sweats < Bjorn Saavedra III Renaldo 12/27/17 23:58> Eyes: Reports sensitivity to light (left eye), Denies blurry vision, Denies change in vision <Bjorn Saavedra III Renaldo 12/27/17 23:58> Ears, Nose, Mouth, and Throat: Reports dizziness, Denies nasal congestion, Denies nasal discharge, Denies sinus pressure <[facility] 12/27/17 23:58> Cardiovascular: Reports chest pain (mild chest tightness), Reports leg swelling (RLE), Reports lightheadedness, Reports radiating jaw, neck or arm pain ( tingling in right arm with radiation) <[facility] 12/27/17 23:58> Respiratory: Reports cough, Denies shortness of breath <[facility] 12/27/17 23:58> Gastrointestinal: Denies abdominal pain, Denies loose stools, Denies nausea, Denies vomiting <[facility] 12/27/17 23:58> Genitourinary: Denies painful urination, Denies pelvic pain <[facility] 12/27/17 23:58> Musculoskeletal: Reports body aches (whole body pain), Reports neck pain, Reports tingling (in right arm) <[facility] 12/27/17 23:58> Skin/Breast: Denies lesions, Denies rash <[facility] 12/27/17 23:58> Neurologic: Reports dizziness, Reports headache(s), Reports radiating pain, Reports tingling, Reports tingling/numbness/burning sensations, Denies fainting <[facility] 12/27/17 23:58> PMFSH - History History Provided By: Patient <Keri RUBYBjorn [facility] 12/27/17 22:33> - Medical History Medical History: Medical History (Last Updated 12/27/17 @ 23:51 by Bjorn Saavedra III, MD, R2) Hx LEEP (loop electrosurgical excision procedure), cervix, Patient denies medical problems <Gregorio Pierson - 12/28/17 14:55> Medical History (Last Updated 12/27/17 @ 23:51 by Bjorn Saavedra III, MD, R2) Hx LEEP (loop electrosurgical excision procedure), cervix, Patient denies medical problems <Keri RUBYBjorn [facility] 12/27/17 23:58> - Surgical History Surgical History: Surgical History (Last Updated 12/27/17 @ 23:51 by Bjorn Saavedra III, MD, R2) Hx of tubal ligation No history of previous surgery <Gregorio Pierson - 12/28/17 14:55> Surgical History (Last Updated 12/27/17 @ 23:51 by Bjorn Saavedra III, MD, R2) Hx of tubal ligation No history of previous surgery <Keri RUBYBjorn Macario 12/27/17 23:58> - Social History I have reviewed the patient's Social History: Yes <Keri RUBYBjorn Macario 23:58> - Tobacco History Second Hand Smoke Exposure: Yes <Keri RUBYBjorn Macario 12/27/17 23:58> Tobacco Use In Past 30 Days: No <Keri RUBYBjorn Macario 12/27/17 23:58> Smoking Status: Former smoker <Keri RUBYBjorn H 12/27/17 22:33> Packs Per Day: 0.5 (quit 2 years ago) <Keri RUBYBjorn Macario 12/27/17 23:58> years: 1 <Keri RUBYBjorn Macario 12/27/17 23:58> - Alcohol History How Often Do You Have a Drink Containing Alcohol: Never <Keri RUBYBjorn Macario 12/27/17 22:33> - Substance Use History Substance History: No History of Abuse <Keri RUBYBjorn Macario 12/27/17 22:33> - Travel History Recent Travel in the [facility] Within the Last 8 Weeks: No <Keri RUBYBjorn 22:33> Recent Travel Out of the Country Within the Last 8 Weeks: No <Keri RUBY Bjorn Macario 12/27/17 22:33> - Immunization History Tetanus Immunization: <5 Years <Keri RUBYBjorn Macario 12/27/17 22:33> Medications and Allergies Allergies Allergy/AdvReac Type Severity Reaction Status Date / Time No Known Allergies Allergy UNKNOWN Uncoded 12/27/17 18:47 <Gregorio Pierson - 12/28/17 15:12> Active Medications: Active Medications Acetaminophen (Tylenol) 650 mg PO Q4H PRN PRN Reason: PAIN 1-10 OR TEMP > 100.4 F Last Admin: 12/28/17 12:37 Dose: 650 mg Enoxaparin Sodium (Lovenox Inj) 40 mg SQ Q24H VIC Vancomycin HCl 1,750 mg/ (Sodium Chloride) 517.5 mls @ 250 mls/hr IV.SIG Q12H [facility] Last Admin: 12/28/17 13:00 Dose: 250 mls/hr Ceftriaxone Sodium 2,000 mg/ (Sodium Chloride) 100 mls @ 200 mls/hr IV.SIG Q12H [facility] Miscellaneous Information ([facility] Ordered Lab Info) 0 each OTHER ONCE ONE Stop: 12/29/17 11:46 Ondansetron HCl (Zofran Inj) 4 mg IV.PUSH Q6H PRN PRN Reason: NAUSEA OR VOMITING Pharmacy Profile Note (Vancomycin Consult Pharmacy) 1 each OTHER UNSCH PRN PRN Reason: Pharmacy to dose Senna/Docusate Sodium (Jossy-Colace) 1 tab PO BID [facility] Last Admin: 12/28/17 08:36 Dose: Not Given Sodium Chloride (Ns Flush) 2 ml IV.FLUSH PRN PRN PRN Reason: FLUSH AFTER USING IV ACCESS <Gregorio Pierson L - 12/28/17 15:12> Active Medications Sodium Chloride (Ns Flush) 2 ml IV.FLUSH PRN PRN PRN Reason: FLUSH AFTER USING IV ACCESS <Bjorn Saavedra III H - 12/27/17 22:33> Exam Vital signs: Vital Signs 12/27/17 18:35 12/27/17 20:37 12/28/17 00:00 Temperature 102.2 F H 99.9 F H Pulse Rate 81 51 L Respiratory Rate 16 18 Blood Pressure 124/67 98/56 L Pulse Oximetry 99 12/28/17 00:27 12/28/17 03:56 12/28/17 07:01 Temperature 98.1 F Pulse Rate 50 L 57 L Respiratory Rate 18 Blood Pressure 89/61 L 111/61 Pulse Oximetry 95 100 12/28/17 07:44 12/28/17 11:42 12/28/17 11:48 Temperature 98.6 F Pulse Rate 56 L 53 L Respiratory Rate 16 16 Blood Pressure 101/64 89/54 L Pulse Oximetry 100 99 99 Intake & Output 12/27/17 12/28/17 12/28/17 18:59 06:59 18:59 Intake Total 607 / 607 100 / 100 Balance 607 / 607 100 / 100 Weight 101.151 kg Intake: IV 607 / 607 100 / 100 KCl 10 mEq Premix Inj 10 meq In 100 / 100 100 ml @ 100 mls/hr IV.SIG Q1H [facility] Rx#:[id number] Vancomycin Inj 1,000 MG In NS 250 / 250 Inj 250 ML @ 250 mls/hr IV.SIG ONCE ONE Rx#:[id number] Vancomycin Inj 700 MG In NS Inj 257 / 257 250 ML @ 250 mls/hr IV.SIG DAILY@0100 [facility] Rx#:[id number] Rocephin Inj 2,000 MG In NS Inj 100 / 100 100 ML @ 200 mls/hr IV.SIG ONCE ONE Rx#:[id number] <Gregorio Pierson Bettye - 12/28/17 15:12> Vital Signs 12/27/17 18:35 12/27/17 20:37 Temperature 102.2 F H 99.9 F H Pulse Rate 81 Respiratory Rate 16 Blood Pressure 124/67 Pulse Oximetry 99 Intake & Output 12/27/17 12/27/17 12/28/17 06:59 18:59 06:59 Weight 101.151 kg <MonicaBjorn rosas III - 12/27/17 22:33> Narrative: GENERAL: Middle aged obese AAF lying in bed in NAD. SKIN: Warm and dry. No lesions or rash. HEAD: Normocephalic. Atraumatic. EYES: No scleral icterus. No injection or drainage. NECK: Supple, trachea midline. Normal ROM. No JVD or lymphadenopathy. CARDIOVASCULAR: Regular rate and rhythm without murmurs, gallops, or rubs. RESPIRATORY: Breath sounds equal bilaterally. No accessory muscle use. GASTROINTESTINAL: Abdomen soft, non-tender, nondistended. BS+. MUSCULOSKELETAL: No cyanosis, or edema. Mildly TTP in RLE. BACK: Nontender without obvious deformity. No CVA tenderness. <Bjorn Saavedra III - 12/27/17 23:58> Results - Labs Result diagrams: 12/28/17 06:50 12/28/17 11:40 <DangeloGregorio Bettye - 12/28/17 15:12> Abnormal lab results 12/27/17 12/27/17 12/27/17 Range/Units 19:45 19:45 19:45 WBC (4.0-11.0) th/mm3 RBC 3.87 L (4.00-5.30) mil/mm3 Hgb 9.9 L (11.6-15.3) gm/dL Hct 31.1 L (35.0-46.0) % MCV (80.0-100.0) fL MCH 25.6 L (27.0-34.0) pg MCHC 31.9 L (32.0-36.0) % Lymph % (Auto) (9.0-44.0) % [place] % (Auto) 11.2 H (0.0-8.0) % Neut # (Auto) (1.8-7.7) th/mm3 D-Dimer Quant (PE/DVT) (0.00-0.50) mg/L FEU Potassium 2.8 L* (3.5-5.1) meq/L Chloride (98-107) meq/L Estimated GFR 88 L (>89) mL/min Random Glucose (74-106) mg/dL Calcium 8.4 L (8.5-10.1) mg/dL Troponin I (0.02-0.05) ng/mL Urine Clarity Hazy H (Clear) Urine Occult Blood Small H (Negative) Urine RBC 4 H (0-3) /hpf Urine Mucus Few H (Occasional) /lpf 12/27/17 12/27/17 12/28/17 Range/Units 19:45 19:45 06:50 WBC 3.9 L (4.0-11.0) th/mm3 RBC 3.26 L (4.00-5.30) mil/mm3 Hgb 8.5 L (11.6-15.3) gm/dL Hct 25.6 L (35.0-46.0) % MCV 78.4 L (80.0-100.0) fL MCH 26.2 L (27.0-34.0) pg MCHC (32.0-36.0) % Lymph % (Auto) 56.9 H (9.0-44.0) % [place] % (Auto) 13.1 H (0.0-8.0) % Neut # (Auto) 1.1 L (1.8-7.7) th/mm3 D-Dimer Quant (PE/DVT) 0.71 H (0.00-0.50) mg/L FEU Potassium (3.5-5.1) meq/L Chloride (98-107) meq/L Estimated GFR (>89) mL/min Random Glucose (74-106) mg/dL Calcium (8.5-10.1) mg/dL Troponin I Less than 0.02 L (0.02-0.05) ng/mL Urine Clarity (Clear) Urine Occult Blood (Negative) Urine RBC (0-3) /hpf Urine Mucus (Occasional) /lpf 12/28/17 12/28/17 Range/Units 06:50 11:40 WBC (4.0-11.0) th/mm3 RBC (4.00-5.30) mil/mm3 Hgb (11.6-15.3) gm/dL Hct (35.0-46.0) % MCV (80.0-100.0) fL MCH (27.0-34.0) pg MCHC (32.0-36.0) % Lymph % (Auto) (9.0-44.0) % [place] % (Auto) (0.0-8.0) % Neut # (Auto) (1.8-7.7) th/mm3 D-Dimer Quant (PE/DVT) (0.00-0.50) mg/L FEU Potassium 2.9 L* 3.1 L (3.5-5.1) meq/L Chloride 108 H 109 H (98-107) meq/L Estimated GFR (>89) mL/min Random Glucose 119 H (74-106) mg/dL Calcium 7.7 L 7.8 L (8.5-10.1) mg/dL Troponin I (0.02-0.05) ng/mL Urine Clarity (Clear) Urine Occult Blood (Negative) Urine RBC (0-3) /hpf Urine Mucus (Occasional) /lpf Short CBC 12/27/17 12/28/17 Range/Units 19:45 06:50 WBC 4.5 3.9 L (4.0-11.0) th/mm3 Hgb 9.9 L 8.5 L (11.6-15.3) gm/dL Hct 31.1 L 25.6 L (35.0-46.0) % Plt Count 316 262 (150-450) th/mm3 BMP 12/27/17 12/28/17 12/28/17 19:45 06:50 11:40 Sodium 139 143 145 Potassium 2.8 L* 2.9 L* 3.1 L Chloride 106 108 H 109 H Carbon Dioxide 26.3 26.8 27.7 BUN 8 10 9 Creatinine 0.86 0.69 0.70 Calcium 8.4 L 7.7 L 7.8 L Cardiac Enzymes 12/27/17 Range/Units 19:45 Troponin I Less than 0.02 L (0.02-0.05) ng/mL Urine 12/27/17 Range/Units 19:45 Urine Color Yellow (Yellw/Straw) Urine Clarity Hazy H (Clear) Urine pH 6.0 (5.0-8.5) Ur Specific [place] 1.015 (1.002-1.035) Urine Protein Negative (Neg-Trace) mg/dL Urine Glucose (UA) Negative (Negative) mg/dL <Gregorio Pierson L - 12/28/17 15:12> Abnormal lab results 12/27/17 12/27/17 12/27/17 Range/Units 19:45 19:45 19:45 RBC 3.87 L (4.00-5.30) mil/mm3 Hgb 9.9 L (11.6-15.3) gm/dL Hct 31.1 L (35.0-46.0) % MCH 25.6 L (27.0-34.0) pg MCHC 31.9 L (32.0-36.0) % [place] % (Auto) 11.2 H (0.0-8.0) % Potassium 2.8 L* (3.5-5.1) meq/L Estimated GFR 88 L (>89) mL/min Calcium 8.4 L (8.5-10.1) mg/dL Urine Clarity Hazy H (Clear) Urine Occult Blood Small H (Negative) Urine RBC 4 H (0-3) /hpf Urine Mucus Few H (Occasional) /lpf Short CBC 12/27/17 Range/Units 19:45 WBC 4.5 (4.0-11.0) th/mm3 Hgb 9.9 L (11.6-15.3) gm/dL Hct 31.1 L (35.0-46.0) % Plt Count 316 (150-450) th/mm3 BMP 12/27/17 19:45 Sodium 139 Potassium 2.8 L* Chloride 106 Carbon Dioxide 26.3 BUN 8 Creatinine 0.86 Calcium 8.4 L Urine 12/27/17 Range/Units 19:45 Urine Color Yellow (Yellw/Straw) Urine Clarity Hazy H (Clear) Urine pH 6.0 (5.0-8.5) Ur Specific [place] 1.015 (1.002-1.035) Urine Protein Negative (Neg-Trace) mg/dL Urine Glucose (UA) Negative (Negative) mg/dL <Bjorn Saavedra III - 12/27/17 22:33> - Imaging Impressions Venous Doppler Study 12/27/17 00:00 CONCLUSION: Negative study. No venous thrombosis of the right lower extremity. Chest X-Ray 12/27/17 19:09 CONCLUSION: No acute cardiopulmonary disease. Head CT 12/27/17 19:13 CONCLUSION: Unremarkable study. <Gregorio Pierson 12/28/17 15:12> Impressions Chest X-Ray 12/27/17 19:09 CONCLUSION: No acute cardiopulmonary disease. Head CT 12/27/17 19:13 CONCLUSION: Unremarkable study. <Bjorn Saavedra III - 12/27/17 22:33> Caprini VTE Risk Assessment Caprini VTE Risk Assessment: No/Low Risk (score <= 1) <Bjorn Saavedra III - 23:58> Caprini Risk Assessment Model: Point Value = 1 Point Value = 2 Point Value = 3 Point Value = 5 Age 41-60 Minor surgery BMI > 25 kg/m2 Swollen legs Varicose veins or History of unexplained or recurrent spontaneous Oral contraceptives or hormone replacement Sepsis (< 1 month) Serious lung disease, including pneumonia (< 1 month) Abnormal pulmonary function Acute myocardial infarction Congestive heart failure (< 1 month) History of inflammatory bowel disease Medical patient at bed rest Age 61-74 Arthroscopic surgery Major open surgery (> 45 min) Laparoscopic surgery (> 45 min) Malignancy Confined to bed (> 72 hours) Immobilizing plaster cast Central venous access Age >= 75 History of VTE Family history of VTE Factor V Leiden Prothrombin [id number] Lupus anticoagulant Anticardiolipin antibodies Elevated serum homocysteine Heparin-induced thrombocytopenia Other congenital or acquired thrombophilia Stroke (< 1 month) Elective arthroplasty Hip, pelvis, or leg fracture Acute spinal cord injury (< 1 month) <Gregorio Pierson - 12/28/17 14:55> Prophylaxis Regimen: Total Risk Factor Score Risk Level Prophylaxis Regimen 0-1 Low Early ambulation 2 Moderate Order ONE of the following: *Sequential Compression Device (SCD) *Heparin 5000 units SQ BID 3-4 Higher Order ONE of the following medications: *Heparin 5000 units SQ TID *Enoxaparin/Lovenox 40 mg SQ daily (WT < 150 kg, CrCl > 30 mL/min) *Enoxaparin/Lovenox 30 mg SQ daily (WT < 150 kg, CrCl > 10-29 mL/min) *Enoxaparin/Lovenox 30 mg SQ BID (WT < 150 kg, CrCl > 30 mL/min) AND/OR *Sequential Compression Device (SCD) 5 or more Highest Order ONE of the following medications: *Heparin 5000 units SQ TID (Preferred with Epidurals) *Enoxaparin/Lovenox 40 mg SQ daily (WT < 150 kg, CrCl > 30 mL/min) *Enoxaparin/Lovenox 30 mg SQ daily (WT < 150 kg, CrCl > 10-29 mL/min) *Enoxaparin/Lovenox 30 mg SQ BID (WT < 150 kg, CrCl > 30 mL/min) AND *Sequential Compression Device (SCD) <Gregorio Pierson - 12/28/17 14:55> Assessment and Plan - Assessment (1) Fever Code(s): R50.9 - Fever, unspecified Status: Acute (2) Headache Code(s): R51 - Headache Status: Acute (3) Hypokalemia Code(s): E87.6 - Hypokalemia Status: Acute <Bjorn Saavedra III H - 12/28/17 00:34> (1) Headache Code(s): R51 - Headache Status: Acute (2) Fever Code(s): R50.9 - Fever, unspecified Status: Acute (3) Hypokalemia Code(s): E87.6 - Hypokalemia Status: Acute <Gregorio Pierson - 12/28/17 15:12> - Assessment and Plan 42 YO female with PMHx of migraines presents with a RAMIREZ for a week and a half and fever to 102.2 in the ED. Pt has WBC 4.5, Hgb 9.9, INR wnl, CMP with hypokalemia to 2.8, Mag wnl, negative UA. ED was not successful in performing LP. Pt admitted for isolated fever of unknown origin and RAMIREZ for observation. Vital signs are normal except for fever. Physical exam is benign. Impression: -CXR negative -CT head negative -EKG pending -CBC as above -CMP as above, s/p K-eff 50 meq once in ED -UA negative and does not require cx -Blood cx drawn -Influenza negative -Pneumococcal and Legionella pending 1. Headache with Hx of migraines; empiric treatment of meningitis undertaken in ED -Exam wnl; no neck soreness, normal ROM; negative -Mild photosensitivity, no nausea or vomiting, no visual disturbance, dizziness/ lightheadedness, tingling and radiation in RUE -Attempt at LP unsuccessful in ED -Negative CT head as above -Rocephin 2g IV once in ED; continue q12h -Vancomycin 2g IV once in ED; continue q12h -Vancomycin pharmacy consult -Consider LP if required in AM; will be of questionable value following treatment -Consider dexamethasone in AM if warranted 2. Fever/unknown source -Tmax 102.2 in ED -Fever aborted with Tylenol 1g in ED -CXR and UA wnl as above -US of RLE with doppler pending -D-Dimer pending -Tylenol 650 mg PO q6h for temp >100.4 3. Hypokalemia to 2.8 on admission -Mag wnl at 1.6 -K-eff 50 meq once administered in ED -Monitor with BMP in AM 4. FEN/GI/PPx Fluids: PO fluids Electrolytes: wnl except for K+; repleting as above Nutrition: Regular diet GI: no PPI PPx: Lovenox 40 mg subcu daily Bowel regimen Pt SDW [place]o [place] and [place] <Bjorn Saavedra III H - 12/28/17 00:35> - Attending Attestation The exam, history, and the medical decision-making described in the above note were completed with the assistance of the resident physician. I reviewed and agree with the findings presented. I did not personally see the patient on admission day, but did see her the following day (12/28/17) and documented my findings. <Gregorio Pierson - 12/28/17 14:55> <Keri RUYBBjorn [facility] Filed: 12/28/17 00:34> (1) Fever Qualifiers: Encounter type: initial encounter (2) Headache Qualifiers: Headache type: unspecified Headache chronicity pattern: acute headache Intractability: not intractable Qualified Code(s): R51 - Headache <Gregorio Pierson Filed: 12/28/17 15:12> (1) Headache Qualifiers: Headache type: unspecified Headache chronicity pattern: acute headache Intractability: not intractable Qualified Code(s): R51 - Headache (2) Fever Qualifiers: Encounter type: initial encounter <MonicaBjorn rosas III [facility] Filed: 12/28/17 00:34> (1) Fever Qualifiers: Encounter type: initial encounter (2) Headache Qualifiers: Headache type: unspecified Headache chronicity pattern: acute headache Intractability: not intractable Qualified Code(s): R51 - Headache <Gregorio Pierson Filed: 12/28/17 15:12> (1) Headache Qualifiers: Headache type: unspecified Headache chronicity pattern: acute headache Intractability: not intractable Qualified Code(s): R51 - Headache (2) Fever Qualifiers: Encounter type: initial encounter
[2017-12-27] MEDS ORDERED: Enoxaparin Inj 40 MG/0.4 ML Syringe SQ SCH (23:00)
[2017-12-27] MEDS ORDERED: Acetaminophen 325 MG Tablet PO PRN (23:14)
[2017-12-28] MEDS ORDERED: Vancomycin Consult Pharmacy OTHER PRN (00:31)
[2017-12-28] MEDS ORDERED: Vancomycin Inj 700 MG in Sodium Chlor 0.9% Inj 250 ML IV.SIG SCH (01:00)
--- NOTE | 2017-12-28 01:05 | US ---
EXAM DATE: 12/28/2017 1:02 AM EDT AGE/SEX: 42 years / Female INDICATIONS: Right leg pain. CLINICAL DATA: This is the patient's initial encounter. Patient reports that signs and symptoms have been present for 1 day and indicates a pain score of 7/10. MEDICAL/SURGICAL HISTORY: . Right leg pain. Tubal ligation. LEEP. COMPARISON: No prior exams available for comparison. TECHNIQUE: Venous ultrasound of both lower extremities was performed from the inguinal ligament to t he proximal calf. Real-time, color Doppler and spectral tracing, compression and augmentation techni ques were used. FINDINGS: Normal compression of the deep venous system from the inguinal region to the proximal calf . No echogenic clot is seen. Normal response of the venous system to augmentation and respiration. CONCLUSION: Negative study. No venous thrombosis of the right lower extremity. Electronically signed by: Rafael Strong MD 12/28/2017 1:03 AM EDT
[2017-12-28 07:47] VITALS: RESP 16
[2017-12-28 07:47] LABS: Baso % (Auto) 0.8 % (0.0-2.0); Eos % (Auto) 0.5 % (0.0-4.0); Hematocrit 25.6 % (35.0-46.0); Hemoglobin 8.5 gm/dL (11.6-15.3); Lymph # (Auto) 2.2 th/mm3 (1.0-4.8); Lymph % (Auto) 56.9 % (9.0-44.0); Mean Corpuscular HGB Conc 33.4 % (32.0-36.0); Mean Corpuscular Hemoglobin 26.2 pg (27.0-34.0); Mean Corpuscular Volume 78.4 fL (80.0-100.0); Mean Platelet Volume 7.9 fL (7.0-11.0); Mono # (Auto) 0.5 th/mm3 (0.0-0.9); Mono % (Auto) 13.1 % (0.0-8.0); Neut # (Auto) 1.1 th/mm3 (1.8-7.7); Neut % (Auto) 28.7 % (16.0-70.0); Platelet Count 262 th/mm3 (150-450); Red Blood Count 3.26 mil/mm3 (4.00-5.30); Red Cell Distribution Width 16.2 % (11.6-17.2); White Blood Count 3.9 th/mm3 (4.0-11.0)
[2017-12-28] MEDS ORDERED: Potassium Chloride 25 MEQ Effervescent Tablet PO ONE ×2 (08:00→10:00)
[2017-12-28 08:11] LABS: Anion Gap 8 meq/L (5-15); Blood Urea Nitrogen 10 mg/dL (7-18); Calcium 7.7 mg/dL (8.5-10.1); Carbon Dioxide 26.8 meq/L (21.0-32.0); Chloride 108 meq/L (98-107); Glomerular Filtration Rate Greater Than 89 mL/min (>89); Glucose,Random 119 mg/dL (74-106); Sodium 143 meq/L (136-145)
[2017-12-28 08:39] LABS: Potassium 2.9 meq/L (3.5-5.1)
[2017-12-28] MEDS ORDERED: Senna/Docusate Sodium 8.6/50 MG Tablet PO SCH (09:00)
--- NOTE | 2017-12-28 10:15 | P.PNFP ---
Subjective Interval history: Patient is sitting up in bed this morning. Her headache has improved significantly, but she still does have a mild headache. No more fevers overnight. No neck stiffness whatsoever. No blurry vision. Photophobia yesterday that has resolved. No flashing lights, no curtain over vision, no other visual changes. No change in smell. No chest pain, shortness of breath. Nausea resolved. No vomiting. No abdominal pain. Results - Labs Result diagrams: 12/28/17 06:50 12/28/17 11:40 Abnormal lab results 12/27/17 12/27/17 12/27/17 Range/Units 19:45 19:45 19:45 WBC (4.0-11.0) th/mm3 RBC 3.87 L (4.00-5.30) mil/mm3 Hgb 9.9 L (11.6-15.3) gm/dL Hct 31.1 L (35.0-46.0) % MCV (80.0-100.0) fL MCH 25.6 L (27.0-34.0) pg MCHC 31.9 L (32.0-36.0) % Lymph % (Auto) (9.0-44.0) % [place] % (Auto) 11.2 H (0.0-8.0) % Neut # (Auto) (1.8-7.7) th/mm3 D-Dimer Quant (PE/DVT) (0.00-0.50) mg/L FEU Potassium 2.8 L* (3.5-5.1) meq/L Chloride (98-107) meq/L Estimated GFR 88 L (>89) mL/min Random Glucose (74-106) mg/dL Calcium 8.4 L (8.5-10.1) mg/dL Troponin I (0.02-0.05) ng/mL Urine Clarity Hazy H (Clear) Urine Occult Blood Small H (Negative) Urine RBC 4 H (0-3) /hpf Urine Mucus Few H (Occasional) /lpf 12/27/17 12/27/17 12/28/17 Range/Units 19:45 19:45 06:50 WBC 3.9 L (4.0-11.0) th/mm3 RBC 3.26 L (4.00-5.30) mil/mm3 Hgb 8.5 L (11.6-15.3) gm/dL Hct 25.6 L (35.0-46.0) % MCV 78.4 L (80.0-100.0) fL MCH 26.2 L (27.0-34.0) pg MCHC (32.0-36.0) % Lymph % (Auto) 56.9 H (9.0-44.0) % [place] % (Auto) 13.1 H (0.0-8.0) % Neut # (Auto) 1.1 L (1.8-7.7) th/mm3 D-Dimer Quant (PE/DVT) 0.71 H (0.00-0.50) mg/L FEU Potassium (3.5-5.1) meq/L Chloride (98-107) meq/L Estimated GFR (>89) mL/min Random Glucose (74-106) mg/dL Calcium (8.5-10.1) mg/dL Troponin I Less than 0.02 L (0.02-0.05) ng/mL Urine Clarity (Clear) Urine Occult Blood (Negative) Urine RBC (0-3) /hpf Urine Mucus (Occasional) /lpf 12/28/17 Range/Units 06:50 WBC (4.0-11.0) th/mm3 RBC (4.00-5.30) mil/mm3 Hgb (11.6-15.3) gm/dL Hct (35.0-46.0) % MCV (80.0-100.0) fL MCH (27.0-34.0) pg MCHC (32.0-36.0) % Lymph % (Auto) (9.0-44.0) % [place] % (Auto) (0.0-8.0) % Neut # (Auto) (1.8-7.7) th/mm3 D-Dimer Quant (PE/DVT) (0.00-0.50) mg/L FEU Potassium 2.9 L* (3.5-5.1) meq/L Chloride 108 H (98-107) meq/L Estimated GFR (>89) mL/min Random Glucose 119 H (74-106) mg/dL Calcium 7.7 L (8.5-10.1) mg/dL Troponin I (0.02-0.05) ng/mL Urine Clarity (Clear) Urine Occult Blood (Negative) Urine RBC (0-3) /hpf Urine Mucus (Occasional) /lpf Short CBC 12/27/17 12/28/17 Range/Units 19:45 06:50 WBC 4.5 3.9 L (4.0-11.0) th/mm3 Hgb 9.9 L 8.5 L (11.6-15.3) gm/dL Hct 31.1 L 25.6 L (35.0-46.0) % Plt Count 316 262 (150-450) th/mm3 BMP 12/27/17 12/28/17 19:45 06:50 Sodium 139 143 Potassium 2.8 L* 2.9 L* Chloride 106 108 H Carbon Dioxide 26.3 26.8 BUN 8 10 Creatinine 0.86 0.69 Calcium 8.4 L 7.7 L Cardiac Enzymes 12/27/17 Range/Units 19:45 Troponin I Less than 0.02 L (0.02-0.05) ng/mL Urine 12/27/17 Range/Units 19:45 Urine Color Yellow (Yellw/Straw) Urine Clarity Hazy H (Clear) Urine pH 6.0 (5.0-8.5) Ur Specific [place] 1.015 (1.002-1.035) Urine Protein Negative (Neg-Trace) mg/dL Urine Glucose (UA) Negative (Negative) mg/dL - Imaging Impressions Venous Doppler Study 12/27/17 00:00 CONCLUSION: Negative study. No venous thrombosis of the right lower extremity. Chest X-Ray 12/27/17 19:09 CONCLUSION: No acute cardiopulmonary disease. Head CT 12/27/17 19:13 CONCLUSION: Unremarkable study. Physical Exam Vital signs: Vital Signs 12/27/17 18:35 12/27/17 20:37 12/28/17 00:00 Temperature 102.2 F H 99.9 F H Pulse Rate 81 51 L Respiratory Rate 16 18 Blood Pressure 124/67 98/56 L Pulse Oximetry 99 12/28/17 00:27 12/28/17 03:56 12/28/17 07:01 Temperature 98.1 F Pulse Rate 50 L 57 L Respiratory Rate 18 Blood Pressure 89/61 L 111/61 Pulse Oximetry 95 100 12/28/17 07:44 Temperature Pulse Rate 56 L Respiratory Rate 16 Blood Pressure 101/64 Pulse Oximetry 100 Intake & Output 12/27/17 12/28/17 12/28/17 18:59 06:59 18:59 Intake Total 607 / 607 Balance 607 / 607 Weight 101.151 kg Intake: IV 607 / 607 Vancomycin Inj 1,000 MG In NS 250 / 250 Inj 250 ML @ 250 mls/hr IV.SIG ONCE ONE Rx#:[id number] Vancomycin Inj 700 MG In NS Inj 257 / 257 250 ML @ 250 mls/hr IV.SIG DAILY@0100 [facility] Rx#:[id number] Rocephin Inj 2,000 MG In NS Inj 100 / 100 100 ML @ 200 mls/hr IV.SIG ONCE ONE Rx#:[id number] Narrative: General: Sitting up in bed, no distress, appears relatively comfortable, non- toxic appearing Skin: No rashes or lesions noticed HEENT: Normocephalic, no nasal discharge, temporal arteries not tender to palpation Neck: Full range of motion without pain, no neck stiffness, no tenderness with palpation CV: Pulse in 50's, regular rhythm, normal peripheral pulses Lungs: CTAB Abdomen: soft, nontender, nondistended, normal bowel sounds Ext: No swelling, no cyanosis Neuro: CN intact, normal upper and lower body strength and sensation, pupils appropriately responsive, not photophobic Assessment and Plan - Assessment (1) Headache Code(s): R51 - Headache Status: Acute (2) Fever Code(s): R50.9 - Fever, unspecified Status: Acute (3) Hypokalemia Code(s): E87.6 - Hypokalemia Status: Acute - Assessment and Plan 42 YO female with PMHx of migraines presents with a RAMIREZ for a week and a half and fever to 102.2 in the ED, resolved with acetaminophen. 1. Headache with Hx of migraines. Symptoms of pulsating headache, some photophobia yesterday, nausea, suggestive of possible migraine. Meningitis seems unlikely given complete lack of neck stiffness, fever resolved with acetaminophen, non-toxic appearing, feels much better today, does not report exposures. Negative head CT. Received Rocephin and Vancomycin empirically for meningitis. -Will discontinue vancomycin and rocephin -Abortive treatment with Ibuprofen or Tylenol 2. Fever/unknown source, does report some recent nasal congestion, possible viral prodrome. Resolved with acetaminophen. Chest x-ray and urinalysis normal. -Continue acetiminophen for eevers 3. Hypokalemia, possibly due to poor PO intake. No diuretic use, no history of renal disease, no vomiting or diarrhea reported. -Continue oral/IV potassium, check EKG 4. FEN/GI/PPx Fluids: PO fluids Electrolytes: see plan for hypokalemia Nutrition: Regular diet Disposition: If continuing to do well, may go home later today. Follow up with primary care physician regarding headaches/migraines. If fevers continue spiking or feeling worse rather than better, recommend urgent evaluation. Recommend good oral nutrition and fluid intake. Pt SDW resident team this morning. (1) Headache Qualifiers: Headache type: unspecified Headache chronicity pattern: acute headache Intractability: not intractable Qualified Code(s): R51 - Headache (2) Fever Qualifiers: Encounter type: initial encounter
[2017-12-28] MEDS: Potassium Chlor 10 mEq Premix 10 MEQ/100 ML PIGGYBACK IV.SIG SCH ×2 (11:12→12:59)
[2017-12-28 11:42] VITALS: O2SAT 99
[2017-12-28 11:52] VITALS: BP 89/54; PULSE 53; TEMP 98.6
[2017-12-28] MEDS ORDERED: Vancomycin Inj 1,750 MG in Sodium Chlor 0.9% Inj 500 ML IV.SIG SCH (12:00)
[2017-12-28 12:05] LABS: Anion Gap 8 meq/L (5-15); Blood Urea Nitrogen 9 mg/dL (7-18); Calcium 7.8 mg/dL (8.5-10.1); Carbon Dioxide 27.7 meq/L (21.0-32.0); Chloride 109 meq/L (98-107); Glomerular Filtration Rate Greater Than 89 mL/min (>89); Glucose,Random 87 mg/dL (74-106); Potassium 3.1 meq/L (3.5-5.1); Sodium 145 meq/L (136-145)
[2017-12-28] MEDS ORDERED: Enoxaparin Inj 40 MG/0.4 ML Syringe SQ SCH (22:00)
[2017-12-29] MEDS ORDERED: Pharmacy Ordered Lab Info OTHER ONE (11:45)
--- NOTE | 2017-12-29 18:48 | ECG ---
Date Performed: 12/28/2017 Time Performed: 09:47:01 PTAGE: 42 years EKG: SINUS BRADYCARDIA WITH SINUS ARRHYTHMIA WITH FIRST DEGREE AV BLOCK NONSPECIFIC T-WAVE ABNOR MALITY ABNORMAL ECG NO PREVIOUS TRACING DOCTOR: Perlita Villatoro Interpretating Date/Time 12/29/2017 18:39:33
== END 2017-12-28 16:49 | disposition home or self-care (01) ==
LOC: NEPD 18:11 → NEDA 18:11 → NEPFCDU 12-28 03:17
PROVIDERS: ADMIT Family Medicine; ATTEND Family Medicine
DX: R50.9 Fever, unspecified; Z87.891 Personal history of nicotine dependence; Z86.61 Personal history of infections of the central nervous system; Z98.51 Tubal ligation status; G43.909 Migraine, unspecified, not intractable, without status migrainosus; G25.81 Restless legs syndrome; E87.6 Hypokalemia